=== PATIENT | female | born 1995 | race Caucasian/White ===

== ENCOUNTER 2019-01-16 10:36 | Emergency (ER) | payer OTHER ==
[~2019-01-16] VITALS: Ht 154.9 cm; Wt 53.6 kg
[~2019-01-16 10:36] MED LIST: ABILIFY 10MG TA10 MG PO; ALEVE220 MG PO; CEFTIN250 M1 PO; COGENTIN 1MG1 MG/TAB PO; COMPAZINE 110 MG/TAB; COMPAZINE5 MG PO; EFFEXOR XR75 MG/CAP PO; IMITREX5 MG NS; JOLESSA 30 MCG-1 TAB PO; LEXAPRO10 MG PO; LEXAPRO5 MG PO; LORTAB 5/500 501 TAB; MECLIZINE12.5 MG PO; NAPROXEN 3375 MG/TAB PO; NAPROXEN DELAY375 MG PO; PROMETHAZINE12.5 M5 PO; PROVENTIL0.09 MG/A1 IH; TOPAMAX 25MG25 M1 PO; TOPAMAX25 M1 PO; TORADOL10 MG PO; TRI-LO-SPRINTE1 EACH PO; ULTRAM 50MG TAB50 MG PO; VICODIN 5/5001 UDTAB PO; ZITHROMAX Z PA250 MG PO
[2019-01-16] MEDS ORDERED: PRENATAL MVI (11:07)
[2019-01-16 11:19] LABS: COLLECTION METHOD CLEAN CATCH
[2019-01-16 11:36] LABS: MUCOUS Present /lpf; URINE BACTERIA None Seen /hpf; URINE RBC 0-2 /hpf
[2019-01-16 12:06] LABS: PH 8 (5-8); URINE APPEARANCE Clear; URINE BILIRUBIN Negative (NEGATIVE); URINE BLOOD Negative (NEGATIVE); URINE COLOR Yellow; URINE GLUCOSE Negative (NEGATIVE); URINE KETONE Negative (NEGATIVE); URINE LEUKOCYTE ESTERASE Negative (NEGATIVE); URINE NITRATE Negative (NEGATIVE); URINE PROTEIN(semi-quant) Negative (NEGATIVE); URINE UROBILINOGEN Negative (NEGATIVE)
[2019-01-16 13:15] VITALS: BP 100/65; PULSE 68; TEMP 97.8
== END 2019-01-16 13:15 | disposition home or self-care (01) ==
LOC: COL.ER 10:36
PROVIDERS: Nurse Practitioner Primary Care
DX: O26.891 Other specified pregnancy related conditions, first trimester (principal); R10.32 Left lower quadrant pain; Z87.42 Personal history of other diseases of the female genital tract; Z87.59 Personal history of other complications of pregnancy, childbirth and the puerperium; Z90.49 Acquired absence of other specified parts of digestive tract; Z3A.01 Less than 8 weeks gestation of pregnancy

== ENCOUNTER 2019-07-04 20:07 | Outpatient (CLI) | payer BC ==
[~2019-07-04] VITALS: Ht 154.9 cm; Wt 65.0 kg
[2019-07-04 18:45] VITALS: BP 121/73; PULSE 93; TEMP 98.6
[~2019-07-04 20:07] MED LIST changes: +PRENATAL MVI
--- NOTE | 2019-07-04 20:15 | NUR ---
2015- PATIENT PLACED IN LABOR ROOM #5 WITH C/O OF DECREASED MOVEMENT SINCE LAST EVENING. PATIENT STATES HAVING AN ANTERIOR PLACENTA. EFM PLACED ON PATIENT. HEARTONES AUDIBLE RIGHT AWAY IN THE 130'S.
[2019-07-04 20:23] VITALS: BP 121/73; PULSE 93; TEMP 98.6
[2019-07-04] MEDS ORDERED: BENADRYL50 MG PO (20:30)
[2019-07-04] MEDS ORDERED: WELLBUTRIN SR150 M1 PO (20:30)
== END 2019-07-04 20:53 | disposition home or self-care (01) ==
LOC: LDRO 20:07
DX: O36.8130 Decreased fetal movements, third trimester, not applicable or unspecified (principal); Z3A.30 30 weeks gestation of pregnancy

== ENCOUNTER 2019-07-26 12:06 | Day surgery (SDC) | payer BC ==
[~2019-07-26] VITALS: Ht 154.9 cm; Wt 66.8 kg
[2019-07-26 11:45] VITALS: BP 127/75; PULSE 93
--- NOTE | 2019-07-26 11:45 | NUR ---
Pt here with c/o contractions that started this AM. Pt states having 4 in one hour earlier this morning and now every 15 minutes apart. 33.4 weeks gestation, G2L0. Pt to EFM, explained. SVE by Ana EMRLOS, 3 with bloody show noted on exam glove. FHR reactive, no contractions monitored or palpated. Assessment completed. Dr Saunders called and updated. Physician to be here at 1230 for scheduled procedure and will evaluate.
[~2019-07-26 12:06] MED LIST changes: +BENADRYL50 MG PO; +WELLBUTRIN SR150 M1 PO
[2019-07-26 12:24] VITALS: BP 127/75; PULSE 93; TEMP 98.2
[2019-07-26 12:30] VITALS: PULSE 78
[2019-07-26 13:36] VITALS: BP 111/70; PULSE 103
--- NOTE | 2019-07-26 13:40 | NUR ---
1320 DR BLANTON AT BEDSIDE. SVE 2-3/80/-3 BLOODY SHOW NOTED TO GLOVE. PATIENT STATES JUST HAVE SMALL CRAMPS. DR BLANTON AT BEDSIDE DISCUSSING OPTIONS AND PLANS TO TRANSFER TO [facility].
--- NOTE | 2019-07-26 13:50 | NUR ---
IV started to left wrist and 2nd IV site started to right wrist. LR started at 50ml/hr. MgS04 4gm loading dose started at 1400. S/S explained to pt. Knapp catheter placed. 1410:Pen G 5mu started to right wrist site, infusing at 150ml/hr. Decadron 6mg given to right glute. 1420:MgS04 2gm/hr started at 50ml/hr. Cosigned by Jhonny MERLOS. 1430:Dr Saunders here and SVE: no cervical changed made. Vital signs stable. FHR reactive, pt c/o cramping. 1435:[facility] here and report given to Gregory. 1450:Pt discharged. 1455:Report called and Zeny Silva L&D charge nurse.
[2019-07-26 14:00] VITALS: BP 143/68; PULSE 82
[2019-07-26 14:12] LABS: MEAN CELL VOLUME 84 fl (80.0-100.0); MEAN CORPUSCULAR HGB CONC 33 g/dl (33.0-37.0); MEAN PLATELET VOLUME 8.4 fl (7.4-10.4); PLATELET COUNT 395 K/mm3 (130-400); REDCELL DISTRIBUTION WIDTH-CV 12.5 % (11.5-14.5)
[2019-07-26 14:26] LABS: HEMATOCRIT 28.5 % (37.0-47.0); HEMOGLOBIN 9.4 g/dl (12.5-16.0); MEAN CORPUSCULAR HEMOGLOBIN 28 pg (27.0-31.0)
[2019-07-26 14:37] LABS: BAND 4 % (0-10); LYMPHOCYTE 23 % (20.0-51.0); METAMYELOCYTE 1 % (0-0); MYELOCYTE 1 % (0-0); NEUTROPHILS 66 % (42.0-75.2); PLATELET ESTIMATE NORMAL (NORMAL)
[2019-07-26 14:45] VITALS: BP 127/61; PULSE 100; TEMP 97.9
== END 2019-07-26 14:55 | disposition home or self-care (01) ==
LOC: LDR 12:06 → SDCO 12:06 → LDR 14:55 → EDSTATUS 07-27 08:36
PROVIDERS: Obstetrics & Gynecology
DX: O60.03 Preterm labor without delivery, third trimester (principal); O99.013 Anemia complicating pregnancy, third trimester; O99.353 Diseases of the nervous system complicating pregnancy, third trimester; G43.909 Migraine, unspecified, not intractable, without status migrainosus; O99.343 Other mental disorders complicating pregnancy, third trimester; F41.9 Anxiety disorder, unspecified; F32.9 Major depressive disorder, single episode, unspecified; O99.513 Diseases of the respiratory system complicating pregnancy, third trimester; J45.909 Unspecified asthma, uncomplicated; Z88.6 Allergy status to analgesic agent; Z88.8 Allergy status to other drugs, medicaments and biological substances
CPT/HCPCS: J1100; J2540; J3475; J7120

== ENCOUNTER 2019-08-05 21:53 | Outpatient (CLI) | payer BC ==
[~2019-08-05] VITALS: Ht 154.9 cm; Wt 66.8 kg
--- NOTE | 2019-08-05 21:58 | NUR ---
at 35 weeks arrives to unit with complaint of contractions every 4 minutes at home. Pt was transferred to [facility] at 34 weeks for labor. Pt is currently taking antibiotics for UTI and has 3 days left. Pt states she has been taking as directed. Pt reports good movement, has had some bloody discharge. Pt oriented to room, call light within reach, bed in low and locked position. US and toco explained and applied. Plan of care reviewed with patient. SVE /-3, membranes intact. Admission asssessment started. Vital signs obtained.
[2019-08-05 22:15] VITALS: BP 122/77; PULSE 91; TEMP 98
[2019-08-05 22:45] VITALS: BP 112/74; PULSE 88
--- NOTE | 2019-08-05 22:50 | NUR ---
When reviewing FHR tracing and toco it appears that patient is tensing abdomen for about 30-40 seconds with movement. Rare contractions on monitor. Plan of care reviewed with patient and spouse.
--- NOTE | 2019-08-05 23:10 | NUR ---
SVE unchanged over 1 hour. Pt feels comfortable being discharged home. Dr. Gill notified, see physician notification.
[2019-08-05 23:22] VITALS: BP 112/76; PULSE 80
--- NOTE | 2019-08-05 23:25 | NUR ---
Discharge instructions reviewed with patient and spouse. All questions answered. Return precautions reviewed. Pt seen ambulating off unit with spouse.
== END 2019-08-05 23:25 | disposition home or self-care (01) ==
LOC: LDRO 21:53 → LDR 22:02 → LDRO 23:25
DX: O62.9 Abnormality of forces of labor, unspecified (principal); Z3A.35 35 weeks gestation of pregnancy
CPT/HCPCS: OP

== ENCOUNTER 2019-08-16 11:12 | Inpatient (IN) | payer BC ==
[~2019-08-16] VITALS: Ht 154.9 cm; Wt 66.4 kg
[2019-08-16] VITALS (28 sets, daily range): BP systolic 94–157; BP diastolic 52–95; PULSE 68–133; TEMP 98.2
[2019-08-16 12:29] LABS: BASO % 0.2 % (0.0-2.0); EOS % 0.2 % (0-4.0); GRAN # 9.5 (1.4-6.5); GRAN % 76.7 % (42.2-75.2); HEMOGLOBIN 10.8 g/dl (12.5-16.0); LYMPH % 16.3 % (20.0-51.0); MEAN CELL VOLUME 85 fl (80.0-100.0); MEAN CORPUSCULAR HEMOGLOBIN 27 pg (27.0-31.0); MEAN CORPUSCULAR HGB CONC 32 g/dl (33.0-37.0); MONO # 0.7 (0.1-0.6); MONO % 5.5 % (1.7-9.3); PLATELET COUNT 298 K/mm3 (130-400); RED BLOOD COUNT 3.98 M/mm3 (4.10-5.30); REDCELL DISTRIBUTION WIDTH-CV 14.8 % (11.5-14.5)
[2019-08-16 12:31] LABS: HEMATOCRIT 33.8 % (37.0-47.0)
--- NOTE | 2019-08-16 12:34 | NUR ---
1135 PATIENT HERE FROM OFFICE. SROM THIS MORNING AT 0730. CLEAR FUID. SVE ON ADMISSION. /-1 AMNIOTRACE POSITIVE. EFM ON FHT 120 BABY VERY ACTIVE. ASSESSMENT COMLETED. IV STARTED
--- NOTE | 2019-08-16 15:10 | NUR ---
1450 PATIENT SITS UP ON EDGE OF BED FOR EPIDURAL PLACEMENT. TOLERATES WELL. SEE Nya OCONNELL CRNA FOR NOTES.
--- NOTE | 2019-08-16 17:39 | NUR ---
[address] BLANTON CALLED AND UPDATED AND NO ORDERS GIVEN A THIS TIME OTHER THEN CALL WHEN DR NEEDED FOR DELIVERY. FHT 118 WITH VARIABLES NOTED.
--- NOTE | 2019-08-16 17:41 | NUR ---
1630 FHT DECREASED IN 50'S AND WILL SLOWLY INCREASE WITH POSITION CHANGE AND THEN DROP AGAIN TO 50'S. O210L/MASK, PIT OFF, LR WIDE OPEN. DR BLANTON CALLED TO COME TO HOSPITAL. PATIENT REPOSITINED FROM LEFT TO RIGHT AND THEN TO KNEE CHEST. 16[address] BLANTON AT HOSPITAL AT THIS TIME.
--- NOTE | 2019-08-16 17:44 | NUR ---
1700 PATIENT PUSHES WITH CONTRACTIONS. 1704 BABY BOY DELIVERED VIA BY DR BLANTON. CORD CLAMPED AND CUT BY AND BABY TO [facility]. 1708 PLACENTA DELIVERED AT THIS TIME. PITOCIN STARTED AT 333 PER PROTOOCL. SMALL REPAIR DONE BY DR BLANTON AT THIS TIME. PATIENT VERY UNCOMFORTABLE. LIDOCAINE 1% GIVEN BY DR BLANTON AND REPAIR DONE PATIENT TOLERATES WELL
--- NOTE | 2019-08-16 21:12 | NUR ---
2000 PT UP TO BR VOIDS 250ML INSTRUCTED IN [facility]. AMBULATES TO RM 216 TOLERATES WELL.
[2019-08-17] VITALS: BP 118/72; PULSE 78; TEMP 98
[2019-08-17 07:19] VITALS: BP 114/68; PULSE 78; TEMP 97.3
--- NOTE | 2019-08-17 11:19 | NUR ---
Initial visit; Parents thanked Factory Expert for offering congratulations and God's blessings for the of their son. Factory Expert thanked family for choosing [facility].
[2019-08-17] MEDS ORDERED: IBU600 MG PO (12:22)
[2019-08-17 16:16] VITALS: BP 112/68; PULSE 76; TEMP 98.1
[2019-08-17 19:30] VITALS: BP 111/73; PULSE 83; TEMP 98.9
[2019-08-18 08:30] VITALS: BP 109/64; PULSE 86; TEMP 98.4
== END 2019-08-18 14:20 | disposition home or self-care (01) | DRG 807 ==
LOC: LDR 11:12 → OB 20:00
PROVIDERS: ADMIT Obstetrics & Gynecology
PROC: 10E0XZZ Delivery of Products of Conception, External Approach (ICD-10-PCS; principal; 2019-08-16)
PROC: 0UQMXZZ Repair Vulva, External Approach (ICD-10-PCS; 2019-08-16)
PROC: 4A1HXCZ Monitoring of Products of Conception, Cardiac Rate, External Approach (ICD-10-PCS; 2019-08-16)
DX: O42.913 Preterm premature rupture of membranes, unspecified as to length of time between rupture and onset of labor, third trimester (principal); Z37.0 Single live birth; O70.0 First degree perineal laceration during delivery; Z3A.36 36 weeks gestation of pregnancy
CPT/HCPCS: J2590; J2791; J3010; J7120

== ENCOUNTER → 2019-08-22 | Outpatient (CLI) | payer BC ==
[~2019-08-22] MED LIST changes: +IBU600 MG PO
--- NOTE | 2019-08-22 12:04 | NUR ---
Pt, Brooke Roblero, presents to walk-in clinic with 6 day old baby boy, Koby Roblero. They were seen yesterday by Dr. Bhakta and concerns were noted about his latching and milk transfer. Koby was born on [birth year] at 36 weeks gestation; EDC was 09/09/2019. His weight was 5#8.9oz (2520 gms). Discharge weight was 5#5oz (2405 gms) and pt states his weight yesterday with Dr. Bhakta was 5#3oz. Today Koby weighs 5#3oz (2354 gms). Pt reports some feedings take two hours before she feels he has nursed enough and she is supplementing him with about 1oz EBM after 8 feedings daily. She reports QS voids and 3 brown/yellow stools in the last 24 hours. Pt pumps with a manual pump 8x daily and collects 2-3oz. At this feeding Koby was on and off for a few minutes at a time even with LC assist. His effort is noted as weak, and he is disinterested after trying for about 10 minutes. Total gain during this irregular feeding is 0.4oz (8 gm). Impression: is exhibiting feeding challenges common with babies. Will support infants intake and pt's milk supply until he is nursing effectively. POC: Three step plan: Continue , limiting attempts to 10-15 minutes. If Koby latches, continue feeding. Follow with supplement of 2oz- 2.5oz EBM if he does not latch well, and optional to offer 1oz if he does nurse. Follow with pumping bilaterally for 10-15minutes to ensure continued good milk volume. Advised to check with [employer] [facility] Dept for a double electric breastpump to rent. F/U: Advised to follow up at clinic next week or with his physician if urgent needs arrise prior. Pt verbalizes understanding, questions invited and answered.
== END ==
LOC: LAC 10:37
DX: Z39.1 Encounter for care and examination of lactating mother (principal); Z71.89 Other specified counseling

== ENCOUNTER → 2019-08-29 | Outpatient (CLI) | payer BC ==
--- NOTE | 2019-08-29 13:30 | NUR ---
Brooke Osbaldo into walk in clinic with 2 week old Koby for weight check and evaluation. Last week after being evaluated in clinic, Brooke started using the 3 step feeding method of BF, supplement, and pumping with each feedign session. Brooke states she is feeding Koby 8-12 times per day, attempting to BF first but ulimately feeding 2 oz EBM via bottle. She is pumping 8 + times per day and is gettign a total of 60 ml per pumping session. Koby's weight on 08/16/19 was noted as 5# 8.9 oz. Last week his prefeed weight was noted as 5# 3 oz (2354 gm) and he took 0.4 oz from the breast. Today's prefeed weight was noted as 5#7 oz (2466 gm) and took 32 mls from the breast using shield. Brooke states this was not a typical feeding as he typically does not latch. POC: Continue to use 3 step feeding plan, increase supplement to 2.5 oz per feeding. Return next week for weight check. Questions encouraged and answered. Understanding verbalized.
== END ==
LOC: LAC 11:36
DX: Z39.1 Encounter for care and examination of lactating mother (principal); Z71.89 Other specified counseling

== ENCOUNTER → 2019-09-05 | Outpatient (CLI) | payer BC ==
--- NOTE | 2019-09-05 11:06 | NUR ---
Brooke Roblero into clinic with 3 week old Koby for weight check and evaluation. Brooke and Koby have been in to the clinic several times before, please see previous notes. Koby was born 08/16/2019 with a weight of 5#9.8 oz. Since he has been difficult to latch to the breast and has had slow weight gain despite supplementation after each attempt. Brooke states that Koby is having 10+ wet diapers per day and 4+ yellow/seedy bowel movements per day. Brooke is offering the breast with feedings; however, is not able to obtain a successful latch with most feeds. Brooke is then giving Chaparrita bottle of EBM 8-10 times per day, offering 4 oz but states Koby is typically taking 2-3 oz with each feed. Brooke is double pumping after each feed and is collecting 2-2.5 oz with each pumping session. Brooke also notes Koby is spitting up after each feeding, despite being a bottle feed or breast feed. Koby's prefeed weight today was noted as 5# 10.3 oz (2558 gm), a gain of 3.3 oz since last week. Last week while in clinic he took 32 mls from the breast. Today, after nursing bilaterally without the use of a breastshield, Koby took 44 mls, he then spit up a large amount despite burping after each breast. Brooke notes that amount of spit up is typical after each feed. recommends Brooke follow up with physician for evaluation for possible pyloric stenosis or other medical condition that may be the cause for frequent spitting up and low weight gain despite good intake. POC: Continue to feed ad sarah, attempt then supplement 3 oz EBM or formula, then double pump. Make appointment with Dr. Bhakta to address spitting up and low weight gain. Questions invited and answered. Understanding verbalized.
== END ==
LOC: LAC 09:54
DX: Z39.1 Encounter for care and examination of lactating mother (principal); Z71.89 Other specified counseling

== ENCOUNTER 2020-03-16 04:22 | Emergency (ER) | payer BC ==
[~2020-03-16] VITALS: Ht 154.9 cm; Wt 51.4 kg
[2020-03-16 04:32] VITALS: TEMP 97.8
[2020-03-16 05:09] LABS: COLLECTION METHOD CLEAN CATCH
[2020-03-16 05:16] LABS: PH 6 (5-8); SQUAMOUS EPITHELIAL 0-2 /hpf; URINE APPEARANCE Clear; URINE BACTERIA None Seen /hpf; URINE BILIRUBIN Negative (NEGATIVE); URINE BLOOD Negative (NEGATIVE); URINE COLOR Yellow; URINE GLUCOSE Negative (NEGATIVE); URINE KETONE Negative (NEGATIVE); URINE LEUKOCYTE ESTERASE Negative (NEGATIVE); URINE NITRATE Negative (NEGATIVE); URINE PROTEIN(semi-quant) Negative (NEGATIVE); URINE RBC 0-2 /hpf; URINE UROBILINOGEN Negative (NEGATIVE)
[2020-03-16 06:02] LABS: BASO # 0.1 (0.0-0.2); BASO % 0.5 % (0.0-2.0); EOS # 0.1 (0.0-0.7); EOS % 0.7 % (0-4.0); GRAN # 10.1 (1.4-6.5); GRAN % 75.1 % (42.2-75.2); HEMATOCRIT 39.5 % (37.0-47.0); HEMOGLOBIN 12.7 g/dl (12.5-16.0); LYMPH # 2.4 (1.2-3.4); LYMPH % 17.9 % (20.0-51.0); MEAN CELL VOLUME 85 fl (80.0-100.0); MEAN CORPUSCULAR HEMOGLOBIN 27 pg (27.0-31.0); MEAN CORPUSCULAR HGB CONC 32 g/dl (33.0-37.0); MEAN PLATELET VOLUME 8.6 fl (7.4-10.4); MONO # 0.7 (0.1-0.6); MONO % 5.4 % (1.7-9.3); PLATELET COUNT 368 K/mm3 (130-400); RED BLOOD COUNT 4.64 M/mm3 (4.10-5.30); REDCELL DISTRIBUTION WIDTH-CV 13.2 % (11.5-14.5)
[2020-03-16 06:16] LABS: ALANINE AMINOTRANSFERASE 13 U/L (4-34); ALBUMIN 4.8 gm/dL (3.5-5.0); ALKALINE PHOSPHATASE 45 U/L (50-136); ANION GAP 8 mmol/L (7-16); AST,SGOT 25 U/L (15-37); BILIRUBIN,TOTAL 0.4 mg/dL (0.0-1.0); BLOOD UREA NITROGEN 12 mg/dL (7-17); CALCIUM 9.5 mg/dL (8.4-10.2); CARBON DIOXIDE 24 mmol/L (22-30); CHLORIDE 105 mmol/L (98-107); CREATININE, serum 0.78 (0.52-1.25); GLUCOSE 99 mg/dL (74-106); LIPASE 103 U/L (23-300); SODIUM 138 mmol/L (137-145); TOTAL PROTEIN 8.2 gm/dL (6.4-8.2)
[2020-03-16 06:25] LABS: C-REACTIVE PROTEIN < 0.5 mg/dL (0.0-0.9)
[2020-03-16 09:52] VITALS: BP 109/69; PULSE 75
== END 2020-03-16 09:53 | disposition home or self-care (01) ==
LOC: COL.ER 04:22
PROVIDERS: Emergency Medicine
DX: O26.891 Other specified pregnancy related conditions, first trimester (principal); R10.31 Right lower quadrant pain; Z3A.01 Less than 8 weeks gestation of pregnancy; Z88.6 Allergy status to analgesic agent; Z88.8 Allergy status to other drugs, medicaments and biological substances
CPT/HCPCS: J7030

== ENCOUNTER 2020-09-23 19:30 | Outpatient (CLI) | payer BC ==
[~2020-09-23] VITALS: Ht 154.9 cm; Wt 63.6 kg
--- NOTE | 2020-09-23 19:40 | NUR ---
Ambulatory to unit for labor assessment, accompanied by spouse. Oriented to room, monitor, plan of care. Pt states "I started having contractions/cramping a couple of hours ago. I had my last baby early last year, so I'm alittle nervous."
[2020-09-23 19:50] VITALS: BP 111/75; PULSE 92; TEMP 98.9
[2020-09-23 20:53] VITALS: BP 110/68; PULSE 64
--- NOTE | 2020-09-23 20:53 | NUR ---
Repeat SVE with no changes noted. Off monitor.
== END 2020-09-23 21:15 | disposition home or self-care (01) ==
LOC: LDRO 19:30
DX: O26.893 Other specified pregnancy related conditions, third trimester (principal); R25.2 Cramp and spasm; Z3A.33 33 weeks gestation of pregnancy

== ENCOUNTER 2020-10-03 13:28 | Inpatient (IN) | payer BC ==
[2020-10-03] VITALS (30 sets, daily range): BP systolic 94–125; BP diastolic 50–74; PULSE 68–101; TEMP 97.4–98.4
[~2020-10-03] VITALS: Ht 154.9 cm; Wt 63.6 kg
--- NOTE | 2020-10-03 13:30 | NUR ---
1330-35.0 G3L1 to LDR 4 with complaints of contractios off and on since last night at 2030. Denies leaking of fluid or vaginal bleeding and reports good movement. Took most recent dose of Bono inj yesterday for history of labor with first baby. Assisted to bed and placed on EFM. Category I FHR tracing with irritibility tracing via toco. SVE by Mike MERLOS /2. Updated MD, see MD notification.
[2020-10-03] MEDS ORDERED: MAKENA250 MG/1 M IM (14:01)
[2020-10-03] MEDS ORDERED: TYLENOL 500MG500 MG (14:02)
[2020-10-03] MEDS ORDERED: NATURAL IRON65 MG (14:02)
--- NOTE | 2020-10-03 16:00 | NUR ---
1600-Patient admitted per MD orders, Pen G started per GBS unknown protocol, see EMAR.
[2020-10-03 16:19] LABS: BASO % 0.4 % (0.0-2.0); EOS # 0.2 (0.0-0.7); EOS % 1.4 % (0-4.0); GRAN # 8.1 (1.4-6.5); GRAN % 72.8 % (42.2-75.2); HEMOGLOBIN 10.4 g/dl (12.5-16.0); LYMPH % 18.4 % (20.0-51.0); MEAN CELL VOLUME 85 fl (80.0-100.0); MEAN CORPUSCULAR HEMOGLOBIN 28 pg (27.0-31.0); MEAN CORPUSCULAR HGB CONC 32 g/dl (33.0-37.0); MEAN PLATELET VOLUME 8.7 fl (7.4-10.4); MONO # 0.7 (0.1-0.6); PLATELET COUNT 300 K/mm3 (130-400); RED BLOOD COUNT 3.77 M/mm3 (4.10-5.30); REDCELL DISTRIBUTION WIDTH-CV 13.2 % (11.5-14.5)
[2020-10-03 16:20] LABS: HEMATOCRIT 32.1 % (37.0-47.0)
--- NOTE | 2020-10-03 17:15 | NUR ---
1715-Patient sitting upright for epidural placement. FERN Benito to patient room. 1725-Test dose per FERN Benito. Patient tolerates procedure well. See anesthesia flow record. 1800-Knapp to DD, clear yellow urine return. SVE /-1.
--- NOTE | 2020-10-03 19:12 | NUR ---
1911- DR. CRUZ TO BEDSIDE FOR SVE CHECK AND AROM. 1914- SVE WAS 5-6/80/-1 WITH MODERATE AMOUNT OF CLEAR FLUID NOTED WITH AROM. PATIENT TOLERATED WELL. DISCSUSED PLAN OF CARE. DENIES FURTHER NEEDS. CALL LIGHT WITHIN REACH.
--- NOTE | 2020-10-03 22:00 | NUR ---
2199- DR. CRUZ AND THIS RN TO BEDSIDE FOR SVE. SVE UNCHANGED. DISCUSSED PITOCIN WITH PATIENT AND SHE IS OKAY WITH IT. DR. CRUZ THEN GAVE VERBAL ORDER TO START PITOCIN AND FOLLOW PROTOCOL. THIS RN VERBALIZED UNDERSTANDING AND GOT EVERYTHING READY AND SCANNED IN. 2203- PITOCIN STARTED. PATIENT DENIES FURTHER NEEDS. CALL LIGHT WITHIN REACH.
--- NOTE | 2020-10-03 23:30 | NUR ---
2330- THIS RN TO BEDSIDE TO CHECK ON PATIENT. SHE VERBALIZED FEELING SOME PRESSURE. 233- SVE REVEALED ANTERIOR LIP. PATIENT DENIES NEEDS AND CALL LIGHT WITHINR EACH. NOTIFIED STAFF AND PREPPED ROOM FOR DELIVERY. 234- CALLED PHYSICIAN PATIENT VOICED FEELING PUSHY AND MUCH MORE PRESSURE. 2345- PROVIDER TO BEDSIDE. PATIENT AND ROOM PREPPED FOR DELIVERY. 234- OF VIABLE MALE . INFANT PLACED TO MOTHER ABDOMEN WHERE NURSERY NURSE ASSUMES CARE AT THIS TIME. 235- OF PLACENTA. FUNDUS MASSAGED TO FIRM BY PROVIDER. PITOCIN PLACED TO RUN AT 333ML/HR PER PROTOCOL. PROVIDER NOTED PATIENT WAS INTACT. PATIENT AND ROOM CLEANED UP. 235- VITALS STABLE, FUNDUS FIRM, PATIENT CLEANED UP. NEW CHUX AND PERIPAD AND ICEPACK TO PERINEUM. RECOVERY STARTED.
[2020-10-04] VITALS (7 sets, daily range): BP systolic 94–117; BP diastolic 51–72; PULSE 64–76; TEMP 97.9
--- NOTE | 2020-10-04 02:15 | NUR ---
IV to INT, epidural dc'd. Up to bathroom with steady gait, voids large amount, performs own pericare. Clean gown on. To nsy via wheelchair.
== END 2020-10-04 05:30 | disposition home or self-care (01) | DRG 807 ==
LOC: LDRO 13:28 → LDR 15:48
PROVIDERS: ADMIT Obstetrics & Gynecology
PROC: 10E0XZZ Delivery of Products of Conception, External Approach (ICD-10-PCS; principal; 2020-10-03)
PROC: 10907ZC Drainage of Amniotic Fluid, Therapeutic from Products of Conception, Via Natural or Artificial Opening (ICD-10-PCS; 2020-10-03)
DX: O60.14X0 Preterm labor third trimester with preterm delivery third trimester, not applicable or unspecified (principal); Z37.0 Single live birth; O99.344 Other mental disorders complicating childbirth; F41.9 Anxiety disorder, unspecified; F32.9 Major depressive disorder, single episode, unspecified; Z3A.35 35 weeks gestation of pregnancy
CPT/HCPCS: J2405; J2540; J2590; J2791; J7120